=== PATIENT | female | born 1970 | race Caucasian/White ===

== ENCOUNTER → 2017-07-16 | Day surgery (SDC) | payer OTHER ==
[~2017-07-16] MED LIST: ACETAMINOPHEN 1000 MG/100 ML 100 ML IV ONE; ACETAMINOPHEN/HYDROcodone 325 MG/5 MG TAB ONE; BUPIVACAINE/EPINEPHRINE 0.25% 50 ML VIAL ONE; KETOROLAC TROMETHAMINE 30 MG/ML (IVP) VIAL IV PUSH ONE; MEPERIDINE HCL 50 MG/ML VIAL ONE; MIDAZOLAM HCL 2 MG/2 ML VIAL ONE; ONDANSETRON HCL 4 MG/2 ML VIAL IV PUSH ONE; OXYC-360 PO; PREN0.01 PO; PROPOFOL 200 MG/20 ML AMP IV ONE; ROCURONIUM INJ 50 MG/5 ML SYRINGE IV PUSH ONE; SODIUM CHLOR 0.9% 1000 ML BAG IV ONE; ceFAZolin 2 GM PREMIX 50 ML ONE; metroNIDAZOLE 500 MG INJ 100 ML IV ONE
--- NOTE | 2017-07-16 12:48 | TN ---
cc: JOEY TA M.D. DATE OF SURGERY: 07/16/2017 PREOPERATIVE DIAGNOSIS Calculous cholecystitis. POSTOPERATIVE DIAGNOSIS Calculous cholecystitis. PROCEDURE Laparoscopic cholecystectomy. SURGEON Dr. Joey Ta. BRICK SIDING APPLICATOR Sondra Ruiz, MS III ANESTHESIA General. INDICATIONS A very pleasant 46-year-old woman sent to me in consultation by Dr. Starr for epigastric pain. Ultrasound demonstrated multiple gallstones. She tried a diet adjustment, apple cider vinager, raw apple juice and a repeat ultrasound demonstrated continued gallstones. She has an upper midline diastasis recti. INTRAOPERATIVE FINDINGS Gallbladder with stones removed and sent to pathology. Inflammatory omentum stuck to the gallbladder. ESTIMATED BLOOD LOSS Minimal. DESCRIPTION OF PROCEDURE IN DETAIL The patient was identified as Rosanna Ortiz, taken to the operating room and placed in the supine position. Sequential compression devices were placed on bilateral lower extremities. Following induction of adequate general endotracheal anesthesia the patient's abdomen was prepped and draped in usual sterile fashion with Betadine. A time-out procedure was performed. Following completion of time-out procedure to everyone's satisfaction, proposed incision superior and right lateral of midline was infiltrated with local anesthetic and the incision carried out with scalpel. Dissection continued posteriorly through at least a 6 cm deep subcutaneous fatty tissue layer until the anterior fascia was identified. It was incised with a scalpel. The underlying muscles spread and the posterior fascia and peritoneum grasped with a hemostat. This was incised with a scalpel allowing for entry into the peritoneal cavity with surgeon's finger. The [employer] balloon [place] trocar was placed in the peritoneal cavity, its balloon inflated with C02 insufflation until a level of 15 mmHg ensued. The patient was placed in a steep reverse Trendelenburg position, turned to the left and two upper abdominal 5 mm trocars were placed in the peritoneal cavity under direct laparoscopic view after incision of skin with a scalpel. The gallbladder was immediately identified and retracted superiorly and anteriorly and inflammatory adhesions of the omentum were identified and photographed. These adhesions were taken down with a harmonic scalpel, down to the base of the gallbladder. The gallbladder was then removed from the gallbladder fossa in a dome down technique using the harmonic scalpel. Cystic artery was divided with a harmonic scalpel. The cystic duct was isolated from surrounding tissues using the harmonic scalpel, ligated proximally distally with 0-PDS Endoloops and the gallbladder placed into an Endo retriever bag and removed through the camera port incision site. Gallbladder was passed off the field for pathologic evaluation. Right upper quadrant was examined. The gallbladder fossa was hemostatic. The cystic arterial stump was hemostatic. The cystic duct ligature remained intact. There was no bloody or bilious drainage. Remaining local anesthetic was placed in subhepatic position. Trocars were removed under direct visualization. There was no evidence of bleeding from trocar sites. The abdomen was actively desufflated through the camera port which was then removed. Posterior fascia and peritoneum was closed with single interrupted [id number] 0 Vicryl suture. The anterior fascia was closed with two 0 Vicryl [id number] sutures. The port sites were irrigated copiously with saline. Skin incisions were approximated with 4-0 Monocryl subcuticular sutures. Dressings were applied with Mastisol, half-inch brown Steri-Strips. The patient tolerated the procedure without apparent complication. Sponge, needle and instrument counts were correct at the end of the case. MD PORTILLO Thibodeaux/WILLIS /12:20 PM /12:33 PM
== END | disposition home or self-care (01) ==
LOC: ESDC 09:01
PROVIDERS: ATTEND Surgery Trauma Surgery
DX: K80.10 Calculus of gallbladder with chronic cholecystitis without obstruction (principal)
CPT/HCPCS: 00790; 47562; 88304; J0131; J0690; J1885; J2175; J2250; J2405; J3010; J7030